=== PATIENT | female | born 1950 | race Caucasian/White ===

== ENCOUNTER → 2017-02-25 16:36 | Outpatient (CLI) | payer MEDICARE, BC ==
[2009-07-17 19:18] VITALS: BMI 29.0
== END | disposition home or self-care (01) ==
LOC: D.MAMMO 02-22 14:30
DX: Z12.31 Encounter for screening mammogram for malignant neoplasm of breast (principal)

== ENCOUNTER → 2017-03-03 12:46 | Outpatient (CLI) | payer MEDICARE, BC ==
[2009-07-17 19:18] VITALS: BMI 29.0
== END | disposition home or self-care (01) ==
LOC: D.MRI 12:46
DX: G81.90 Hemiplegia, unspecified affecting unspecified side (principal)

== ENCOUNTER → 2018-11-13 09:13 | Outpatient (CLI) | payer MEDICARE, BC ==
[2009-07-17 19:18] VITALS: BMI 29.0
== END | disposition home or self-care (01) ==
LOC: D.RAD 09:13
PROVIDERS: ATTEND Internal Medicine Gastroenterology
DX: R10.13 Epigastric pain (principal); E53.8 Deficiency of other specified B group vitamins; K59.00 Constipation, unspecified